=== PATIENT | male | born 1985 | race Caucasian/White ===

== ENCOUNTER 2018-10-18 13:18 | Emergency (ER) | payer SELFPAY ==
[2018-10-18] MEDS ORDERED: KETOROLAC TROMETHAMINE 60 MG/2 ML SDV IM ONE (14:37)
--- NOTE | 2018-10-18 14:46 | ER Document Report ---
HPI - HPI Time Seen by Provider: 10/18/18 14:40 Onset: Other Onset/Duration: Gradual - 2 days ago Quality of pain: Sharp, Stabbing Severity: Severe Pain Level: 5 Context: Patient is a 33-year-old male comes emergency room complaining of low back pain with radiation down the left leg. Patient states he has a history of back problems that occasionally goes out on him. He has a history of sciatica especially on the left side. He denies any loss of urine or stool. He has no recent injury or falls. He states that it just happens when he gets out of a vehicle and turns wrong. 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 He denies any loss of urine or stool. Denies any difficulty with walking. The pain is the only thing that is bothering him. Associated Symptoms: denies: Headache, Nausea, Slow to respond, Weakness Exacerbated by: Sitting, Standing, Movement, Walking Relieved by: Supine, Remaining still Similar symptoms previously: Yes - History of bulging disks in the lower back. Recently seen / treated by doctor: No - ROS ROS below otherwise negative: Yes - CONSTITUTIONAL Constitutional: DENIES: Fever - EENT EENT: DENIES: Sore Throat, Ear Pain, Nasal Drainage-Clear, Nasal Drainage- Purulent - NEURO Neurology: DENIES: Headache, Weakness, Vision blurred, Dizzinesss / Vertigo - CARDIOVASCULAR Cardiovascular: DENIES: Chest pain - RESPIRATORY Respiratory: DENIES: Trouble Breathing - GASTROINTESTINAL Gastrointestinal: DENIES: Abdominal Pain, Nausea, Patient vomiting, Diarrhea, Constipation - URINARY Urinary: DENIES: Dysuria, Urgency, Frequency - REPRODUCTIVE Reproductive: DENIES: : - MUSCULOSKELETAL Musculoskeletal: REPORTS: Extremity pain, Back Pain. DENIES: Neck Pain, Swelling Notes: Examination of patient's back shows he has some mild tenderness to palpation around the lower lumbar spine area. And into the left buttocks. With radiation down the posterior thigh. Patient has good DTRs in the lower extremities. He has good vascular examination as well. He has good strength against resistance with the lower extremities both in flexion and extension at the knees. Also in extension and flexion at the ankles and feet. He has good strength with knees on abduction and abduction. He has positive straight leg raise on the left side up to 25 degrees. - DERM Skin Color: Normal, [place] Skin Problems: None Past Medical History - General Information source: Patient - Social History Smoking Status: Never Smoker Cigarette use (# per day): No Chew tobacco use (# tins/day): No Smoking Education Provided: No Frequency of alcohol use: None Drug Abuse: None Lives with: Family Family History: None, Reviewed & Not Pertinent Psychiatric Medical History: Reports: Hx Attention Deficit Hyperactivity Disorder - Immunizations Immunizations up to date: No Hx Diphtheria, Pertussis, Tetanus Vaccination: Yes Vertical Provider Document - CONSTITUTIONAL Agree With Documented VS: Yes Exam Limitations: negative: Physical Impairment General Appearance: WD/WN, No Apparent Distress, Other - Is uncomfortable appearing. negative: Severe Distress - INFECTION CONTROL TRAVEL OUTSIDE OF THE [place] IN LAST 30 DAYS: No - HEENT HEENT: Atraumatic. negative: Conjuctival Injection, Dental Injury, Normal ENT Exam - NECK Neck: Normal Inspection - RESPIRATORY Respiratory: Breath Sounds Normal, No Respiratory Distress, Chest Non-Tender. negative: Rales, Rhonchi, Wheezing - CARDIOVASCULAR Cardiovascular: Bradycardia - GI/ABDOMEN Gastrointestinal: Abdomen Soft, Abdomen Non-Tender. negative: Abdominal Guarding, Abdominal Rebound - BACK Back: negative: Normal Inspection Notes: As stated on the HPI patient physical exam showed he has some mild tenderness palpation along the left lower lumbar spine area into the left buttocks and down the posterior left buttocks and thigh. Patient had good DTRs in lower extremities he had a positive straight leg raise on the left side of 25 degrees. Vascular examination was negative for any acute findings. He had good vascular flow to the dorsalis pedis bilateral lower extremities as well as to the femoral artery areas. - MUSCULOSKELETAL/EXTREMETIES Musculoskeletal/Extremeties: FROM, Non-Tender, No Edema. negative: Eccymosis Notes: There were no abnormalities found in patient's physical examination of his back as far as discoloration swellings, abrasions - NEURO Level of Consciousness: Awake, Alert, Appropriate Motor/Sensory: No Motor Deficit, No Sensory Deficit, No Pronator Drift, Negative Babinski's Sign. negative: Weak Motor Strength RUE, Weak Motor Strength LUE, Weak Motor Strength RLE, Weak Motor Strength LLE Deep Tendon Reflexes: 2+ - DERM Integumentary: Warm, Dry, No Rash Course - Re-evaluation Re-evalutation: 10/19/18 02:35 Patient's course was negative for any acute findings. And/or was uneventful as well. I did look patient up on the Counts include 234 beds at the [facility] drug line. He has no history or indications of doctor shopping or drug abuse. Therefore felt comfortable enough to give him some pain medications. [place] this was a presenta tion of sciatica and informed him of how this may have occurred and have given him a referral to orthopedist. Discharge - Discharge Clinical Impression: Sciatica of left side Condition: Stable Disposition: HOME, SELF-CARE Instructions: Sciatica ([facility]) Additional Instructions: LOW BACK PAIN: Three out of every four people will have an episode of disabling back pain during their lifetime. Most commonly the pain is due to straining of the muscles and ligaments in the low back. Usual treatment includes: (1) Rest on a firm surface. Avoid lying on your stomach. (2) Ice pack the painful area. After a few days, gentle heat may be used intermittently to relax the area, or ice packs can be continued. (3) Medication may be needed -- muscle relaxers and antiinflammatory medicines are commonly used. (4) As the back improves, exercises are prescribed to strengthen the back and abdominal muscles. Your doctor will advise you on the proper care for your back at each stage in your recovery. You may be better in a few days -- or healing may take several weeks. If new symptoms of a "herniated disc" (radiation of pain, numbness, or tingling down the back of the leg or weakness in the leg) occur, you should be re-examined. Further testing may be necessary. PAIN MEDICATION INJECTION: You have received an injection of a pain medication. You should experience significant pain relief within 45 minutes. If this injection was a narcotic -- it will impair your judgement, slow your reaction time and make you sleepy (as well as relieve your pain). Narcotics also can cause nausea. You should not drive, work with machinery, or perform any task requiring mental alertness until all effects of the medication are gone -- six to eight hours. Do not take any alcohol, or sedatives, and do not take any other medication without checking with your physician. ORAL NARCOTIC MEDICATION: You have been given a prescription for pain control. This medication is a narcotic. It's best taken with food, as nausea can result if taken on an empty stomach. Don't operate machinery or drive within six hours of taking this medication. Do not combine this medicine with alcohol, or with any medication which can cause sedation (such as cold tablets or sleeping pills) unless you get permission from the physician. Narcotics tend to cause constipation. If possible, drink plenty of fluids and eat a diet high in fiber and fruits. Please be aware that prescription narcotics also have the potential for abuse. People become addicted to these medications because of the general sense of wellbeing that they induce. This feeling along with a significant reduction in tension, anxiety, and aggression provides a stimulating seductive quality to these drugs. Once your pain is under control, we encourage you to discard your unused narcotics. MUSCLE RELAXERS: Muscle relaxing medications are usually prescribed for acute muscle spasm or injury to the neck and back. They are often combined with antiinflammatory pain medication for increased relief. You may stop the muscle relaxer when the pain and stiffness have improved. Start the medication again if spasms recur. Muscle relaxers may cause drowsiness, especially with the first dose. Do not operate machinery or drive while under the effects of the medication. Most muscle relaxers last up to 24 hours. Do not combine the medication with alcohol. ICE PACKS: Apply ice packs frequently against the painful area. Many different schedules are recommended, such as "20 minutes on, 20 minutes off" or "one hour ice, two hours rest." If you need to work, you may need to go longer between ice treatments. You should plan to have the area ice packed AT LEAST one fourth of the time. The ice should be applied over the wrap, tape, or splint, or over a layer of cloth -- not directly against the skin. Some ice bags have a built-in cloth and can be put directly on the skin. WARM PACKS: After approximately two days, apply gentle heat (such as a heating pad or hot water bottle) for about 20 to 30 minutes about every two hours -- at least four times daily. Warmth and elevation will help you make a more rapid recovery, and will ease the pain considerably. Do not use HOT heat, and never apply heat for longer than 30 minutes. The continuous heat can invisibly damage skin and muscles -- even when no burn is seen on the surface. Damaged muscles can make you MORE sore. FOLLOW-UP CARE: If you have been referred to a physician for follow-up care, call the physicians office for an appointment as you were instructed or within the next two days. If you experience worsening or a significant change in your symptoms, notify the physician immediately or return to the Emergency Department at any time for re-evaluation. Prescriptions: Cyclobenzaprine HCl [Flexeril 10 mg Tablet] 10 mg PO TIDP PRN #15 tab PRN Reason: Hydrocodone/Acetaminophen [[place] 5-325 mg Tablet] 1 tab PO Q6 PRN #10 tablet PRN Reason: Prednisone 10 mg PO ASDIR PRN 6 Days #1 tab.ds.pk PRN Reason: Forms: Smoking Cessation Education, Return to Work Referrals: SANA CERVANTES MD [ACTIVE STAFF] - Follow up as needed
[2018-10-18 15:02] VITALS: BP 111/62
== END 2018-10-18 15:02 | disposition home or self-care (01) ==
LOC: ER 13:18
DX: M54.32 Sciatica, left side (principal); M54.5 Low back pain; M79.605 Pain in left leg
CPT/HCPCS: 99283; 96372; J1885

== ENCOUNTER 2019-02-20 18:20 | Emergency (ER) | payer SELFPAY ==
[2019-02-20 18:32] VITALS: BP 124/70
[2019-02-20 18:46] LABS: APPEARANCE,URINE CLEAR; BILIRUBIN,URINE NEGATIVE (NEGATIVE); COLOR,URINE YELLOW; GLUCOSE, URINE NEGATIVE (NEGATIVE); KETONES,URINE NEGATIVE (NEGATIVE); LEUKOCYTE ESTERASE,URINE NEGATIVE (NEGATIVE); NITRITE,URINE NEGATIVE (NEGATIVE); PROTEIN,URINE NEGATIVE (NEGATIVE); URINE SPECIFIC GRAVITY 1.014; UROBILINOGEN,URINE NEGATIVE mg/dL (<2.0)
[2019-02-20] MEDS ORDERED: LIDOCAINE 5% (700 MG) TRANSDERMAL ADH..PATCH TP ONE (19:58)
[2019-02-20] MEDS ORDERED: DEXAMETHASONE SOD PHOS INJ 10 MG/1 ML VIAL IM ONE (19:58)
[2019-02-20] MEDS ORDERED: KETOROLAC TROMETHAMINE 60 MG/2 ML SDV IM ONE (19:58)
[2019-02-20] MEDS ORDERED: OXYCODONE-ACETAMINOPHEN 5-325 MG TABLET PO ONE (19:59)
--- NOTE | 2019-02-20 20:01 | ER Document Report ---
ED Medical Screen (RME) - General Chief Complaint: Urinary Problem Stated Complaint: BACK PAIN Time Seen by Provider: 02/20/19 19:58 Mode of Arrival: Ambulatory Information source: Patient Notes: Patient is an otherwise healthy 33-year-old male presenting to the emergency department chief complaint of low back pain. Patient reports the pain is located on the left lumbar area. He denies any bowel incontinence or urinary retention. He denies any saddle anesthesia. He does report that the pain radiates down into his buttock. He states he has had a long history of chronic back issues and musculoskeletal strain. He states lately he has been doing a lot of labor-intensive work with heavy lifting. He denies any urinary concerns, denies dysuria, urinary frequency or urgency. Patient does not have any concerns for STDs. Exam: Patient ambulates with steady gait. Tenderness to the lumbar paraspinous muscles. I have greeted and performed a rapid initial assessment of this patient. A comprehensive ED assessment and evaluation of the patient, analysis of test results and completion of the medical decision making process will be conducted by additional ED providers. Dictation of this chart was performed using voice recognition software; therefore, there may be some unintended grammatical errors. TRAVEL OUTSIDE OF THE [place] IN LAST 30 DAYS: No - Related Data Allergies/Adverse Reactions: No Known Allergies Allergy (Verified 10/18/18 13:19) Past Medical History - Social History Chew tobacco use (# tins/day): No Frequency of alcohol use: Rare Drug Abuse: None Renal/ Medical History: Denies: Hx Peritoneal Dialysis Psychiatric Medical History: Reports: Hx Attention Deficit Hyperactivity Disorder - Immunizations Immunizations up to date: No Hx Diphtheria, Pertussis, Tetanus Vaccination: Yes Physical Exam - Vital signs Vitals: Temp Pulse Resp BP Pulse Ox 98.3 F 71 14 124/70 99 02/20/19 18:30 02/20/19 18:30 02/20/19 18:30 02/20/19 18:30 02/20/19 18:30 Course - Vital Signs Vital signs: Temp Pulse Resp BP Pulse Ox 98.3 F 71 14 124/70 99 02/20/19 18:30 02/20/19 18:30 02/20/19 18:30 02/20/19 18:30 02/20/19 18:30
--- NOTE | 2019-02-20 21:11 | ER Document Report ---
ED General - General Chief Complaint: Urinary Problem Stated Complaint: BACK PAIN Time Seen by Provider: 02/20/19 19:58 Mode of Arrival: Ambulatory Information source: Patient Notes: Patient is an otherwise healthy 33-year-old male presenting to the emergency department chief complaint of low back pain. Patient reports the pain is located on the left lumbar area. He denies any bowel incontinence or urinary retention. He denies any saddle anesthesia. He does report that the pain radiates down into his buttock. He states he has had a long history of chronic back issues and musculoskeletal strain. He states lately he has been doing a lot of labor-intensive work with heavy lifting. He denies any urinary concerns, denies dysuria, urinary frequency or urgency. Patient does not have any concerns for STDs. TRAVEL OUTSIDE OF THE [place] IN LAST 30 DAYS: No - Related Data Allergies/Adverse Reactions: No Known Allergies Allergy (Verified 10/18/18 13:19) Past Medical History - General Information source: Patient - Social History Smoking Status: Current Every Day Smoker Chew tobacco use (# tins/day): No Frequency of alcohol use: Rare Drug Abuse: None Family History: None, Reviewed & Not Pertinent Patient has suicidal ideation: No Patient has homicidal ideation: No - Medical History Medical History: Negative Renal/ Medical History: Denies: Hx Peritoneal Dialysis Psychiatric Medical History: Reports: Hx Attention Deficit Hyperactivity Disorder Surgical Hx: Negative - Immunizations Immunizations up to date: No Hx Diphtheria, Pertussis, Tetanus Vaccination: Yes Review of Systems - Review of Systems Constitutional: No symptoms reported EENT: No symptoms reported Cardiovascular: No symptoms reported Respiratory: No symptoms reported Gastrointestinal: No symptoms reported Genitourinary: No symptoms reported Male Genitourinary: No symptoms reported Musculoskeletal: See HPI Skin: No symptoms reported Hematologic/Lymphatic: No symptoms reported Neurological/Psychological: No symptoms reported Physical Exam - Vital signs Vitals: Temp Pulse Resp BP Pulse Ox 98.3 F 71 14 124/70 99 02/20/19 18:30 02/20/19 18:30 02/20/19 18:30 02/20/19 18:30 02/20/19 18:30 - Notes Notes: PHYSICAL EXAMINATION: GENERAL: Well-appearing, well-nourished and in no acute distress. HEAD: Atraumatic, normocephalic. EYES: Pupils equal round and reactive to light, extraocular movements intact, sclera anicteric, conjunctiva are normal. ENT: Nares patent, oropharynx clear without exudates. Moist mucous membranes. NECK: Normal range of motion, supple without lymphadenopathy LUNGS: Breath sounds clear to auscultation bilaterally and equal. No wheezes rales or rhonchi. HEART: Regular rate and rhythm without murmurs ABDOMEN: Soft, nontender, nondistended abdomen. No guarding, no rebound. No masses appreciated. Musculoskeletal: Normal range of motion, no pitting or edema. No cyanosis. Tenderness to palpation to left paraspinous muscles in the lumbar region. No step-off or deformity or vertebral tenderness. NEUROLOGICAL: Cranial nerves grossly intact. Normal speech, normal gait. Normal sensory, motor exams PSYCH: Normal mood, normal affect. SKIN: Warm, Dry, normal turgor, no rashes or lesions noted. Course - Re-evaluation Re-evalutation: Urinalysis is unremarkable. Patient reports significant reduction in his pain after administration of medications. Patient has no red flag warning signs such as saddle anesthesia, bowel incontinence or urinary retention. Patient states he is ready to go home. Vital signs remained stable. Patient given ED return precautions. - Vital Signs Vital signs: Temp Pulse Resp BP Pulse Ox 98.3 F 71 14 124/70 99 02/20/19 18:30 02/20/19 18:30 02/20/19 18:30 02/20/19 18:30 02/20/19 18:30 Discharge - Discharge Clinical Impression: Back pain Qualifiers: Back pain location: low back pain Chronicity: acute Back pain laterality: right Sciatica presence: with sciatica Sciatica laterality: sciatica of right side Qualified Code(s): M54.41 - Lumbago with sciatica, right side Condition: Stable Disposition: HOME, SELF-CARE Additional Instructions: LOW BACK PAIN: Three out of every four people will have an episode of disabling back pain during their lifetime. Most commonly the pain is due to straining of the muscles and ligaments in the low back. Usual treatment includes: (1) Rest on a firm surface. Avoid lying on your stomach. (2) Ice pack the painful area. After a few days, gentle heat may be used intermittently to relax the area, or ice packs can be continued. (3) Medication may be needed -- muscle relaxers and antiinflammatory medicines are commonly used. (4) As the back improves, exercises are prescribed to strengthen the back and abdominal muscles. Your doctor will advise you on the proper care for your back at each stage in your recovery. You may be better in a few days -- or healing may take several weeks. If new symptoms of a "herniated disc" (radiation of pain, numbness, or tingling down the back of the leg or weakness in the leg) occur, you should be re-examined. Further testing may be necessary. PAIN MEDICATION INJECTION: You have received an injection of a pain medication. You should experience significant pain relief within 45 minutes. If this injection was a narcotic -- it will impair your judgement, slow your reaction time and make you sleepy (as well as relieve your pain). Narcotics also can cause nausea. You should not drive, work with machinery, or perform any task requiring mental alertness until all effects of the medication are gone -- six to eight hours. Do not take any alcohol, or sedatives, and do not take any other medication without checking with your physician. ORAL NARCOTIC MEDICATION: You have been given a prescription for pain control. This medication is a narcotic. It's best taken with food, as nausea can result if taken on an empty stomach. Don't operate machinery or drive within six hours of taking this medication. Do not combine this medicine with alcohol, or with any medication which can cause sedation (such as cold tablets or sleeping pills) unless you get permission from the physician. Narcotics tend to cause constipation. If possible, drink plenty of fluids and eat a diet high in fiber and fruits. Please be aware that prescription narcotics also have the potential for abuse. People become addicted to these medications because of the general sense of wellbeing that they induce. This feeling along with a significant reduction in tension, anxiety, and aggression provides a stimulating seductive quality to these drugs. Once your pain is under control, we encourage you to discard your unused narcotics. MUSCLE RELAXERS: Muscle relaxing medications are usually prescribed for acute muscle spasm or injury to the neck and back. They are often combined with antiinflammatory pain medication for increased relief. You may stop the muscle relaxer when the pain and stiffness have improved. Start the medication again if spasms recur. Muscle relaxers may cause drowsiness, especially with the first dose. Do not operate machinery or drive while under the effects of the medication. Most muscle relaxers last up to 24 hours. Do not combine the medication with alcohol. ICE PACKS: Apply ice packs frequently against the painful area. Many different schedules are recommended, such as "20 minutes on, 20 minutes off" or "one hour ice, two hours rest." If you need to work, you may need to go longer between ice treatments. You should plan to have the area ice packed AT LEAST one fourth of the time. The ice should be applied over the wrap, tape, or splint, or over a layer of cloth -- not directly against the skin. Some ice bags have a built-in cloth and can be put directly on the skin. WARM PACKS: After approximately two days, apply gentle heat (such as a heating pad or hot water bottle) for about 20 to 30 minutes about every two hours -- at least four times daily. Warmth and elevation will help you make a more rapid recovery, and will ease the pain considerably. Do not use HOT heat, and never apply heat for longer than 30 minutes. The continuous heat can invisibly damage skin and muscles -- even when no burn is seen on the surface. Damaged muscles can make you MORE sore. FOLLOW-UP CARE: If you have been referred to a physician for follow-up care, call the physicians office for an appointment as you were instructed or within the next two days. If you experience worsening or a significant change in your symptoms, notify the physician immediately or return to the Emergency Department at any time for re-evaluation. The urine test today was negative. Please rest over the next couple of days. Use the above directions as far as icing and applying warm packs. Take medications as prescribed. Please take ibuprofen 600 mg for the next several days every 6 hours [id number]. Return to the emergency department if you have a bowel movement on yourself, you are unable to urinate at all or have numbness in your pelvic region. Prescriptions: Cyclobenzaprine HCl [Flexeril 10 mg Tablet] 10 mg PO TIDP PRN #15 tab PRN Reason: Hydrocodone/Acetaminophen [[place] 5-325 Tablet] 1 each PO Q4H #12 tablet Lidocaine [Lidoderm 5% (700 mg) Transdermal Patch] 1 patch TP DAILY #30 adh..patch Forms: Return to Work
== END 2019-02-21 00:04 | disposition home or self-care (01) ==
LOC: ER 18:20
DX: M54.42 Lumbago with sciatica, left side (principal); F17.200 Nicotine dependence, unspecified, uncomplicated
CPT/HCPCS: 99283; 96372; 81001; J1885; J1100

== ENCOUNTER 2019-05-07 12:05 | Emergency (ER) | payer SELFPAY ==
[2019-05-07] MEDS ORDERED: KETOROLAC TROMETHAMINE 60 MG/2 ML SDV IM ONE (15:55)
[2019-05-07] MEDS ORDERED: CYCLOBENZAPRINE HCL 10 MG TABLET PO ONE (15:55)
[2019-05-07] MEDS ORDERED: LIDOCAINE 5% (700 MG) TRANSDERMAL ADH..PATCH TP ONE (15:55)
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
[2019-05-07 16:45] VITALS: BP 119/73
== END 2019-05-07 16:46 | disposition home or self-care (01) ==
LOC: ER 12:05
DX: G89.29 Other chronic pain (principal); M54.2 Cervicalgia; M54.42 Lumbago with sciatica, left side; M79.602 Pain in left arm; M79.18 Myalgia, other site
CPT/HCPCS: 99283; 96372; J1885

== ENCOUNTER 2019-07-30 10:11 | Emergency (ER) | payer MEDICAID ==
[2019-07-30 10:16] VITALS: BP 117/64
--- NOTE | 2019-07-30 10:52 | ER Document Report ---
HPI - HPI Time Seen by Provider: 07/30/19 10:40 Pain Level: 5 Notes: Patient is a 33-year-old male presenting to the emergency department with chief complaint of pain to his right posterior knee. Patient reports he has been diagnosed with a Mcdonald's cyst in this area. States he was supposed to see his primary care doctor to have this drained however unfortunately he missed that appointment. He reports the pressure is causing him significant pain. He denies any other illness or fever. - CONSTITUTIONAL Constitutional: DENIES: Fever, Chills - EENT EENT: DENIES: Sore Throat, Ear Pain, Eye problems - NEURO Neurology: DENIES: Headache, Weakness, Vision blurred, Dizzinesss / Vertigo - CARDIOVASCULAR Cardiovascular: DENIES: Chest pain - RESPIRATORY Respiratory: DENIES: Trouble Breathing, Coughing - GASTROINTESTINAL Gastrointestinal: DENIES: Abdominal Pain, Black / Bloody Stools - URINARY Urinary: DENIES: Dysuria, Urgency, Frequency - REPRODUCTIVE Reproductive: DENIES: : - MUSCULOSKELETAL Musculoskeletal: REPORTS: Extremity pain Past Medical History - General Information source: Patient - Social History Smoking Status: Current Every Day Smoker Chew tobacco use (# tins/day): No Frequency of alcohol use: Occasional Drug Abuse: None Family History: None, Reviewed & Not Pertinent Patient has suicidal ideation: No Patient has homicidal ideation: No Renal/ Medical History: Denies: Hx Peritoneal Dialysis Psychiatric Medical History: Reports: Hx Attention Deficit Hyperactivity Disorder Surgical Hx: Negative - Immunizations Immunizations up to date: No Hx Diphtheria, Pertussis, Tetanus Vaccination: Yes Vertical Provider Document - CONSTITUTIONAL Notes: PHYSICAL EXAMINATION: GENERAL: Well-appearing, well-nourished and in no acute distress. HEAD: Atraumatic, normocephalic. EYES: Pupils equal round extraocular movements intact, conjunctiva are normal. ENT: Nares patent NECK: Normal range of motion LUNGS: No respiratory distress Musculoskeletal: Normal range of motion NEUROLOGICAL: Normal speech, normal gait. PSYCH: Normal mood, normal affect. SKIN: Large area of fluctuance noted to right posterior knee, no surrounding erythema or induration. - INFECTION CONTROL TRAVEL OUTSIDE OF THE [place] IN LAST 30 DAYS: No Course - Re-evaluation Re-evalutation: Under sterile technique 15 cc of yellow thick fluid was drained from the patient's right posterior knee area from the large Mcdonald's cyst. Patient reports significant decrease in his pain. Patient tolerated the procedure very well. Patient will be discharged home at this time with plans to follow-up with his primary care provider. - Vital Signs Vital signs: Temp Pulse Resp BP Pulse Ox 98.2 F 64 16 117/64 99 07/30/19 10:15 07/30/19 10:15 07/30/19 10:15 07/30/19 10:15 07/30/19 10:15 Discharge - Discharge Clinical Impression: Bakers cyst Qualifiers: Laterality: right Qualified Code(s): M71.21 - Synovial cyst of popliteal space [Mcdonald], right knee Condition: Stable Disposition: HOME, SELF-CARE Additional Instructions: 15 mL of fluid was drained from your Mcdonald's cyst on the right knee. Please watch the area for any signs of infection to include redness, worsening pain or swelling. Follow-up with your primary care provider. Forms: Return to Work
== END 2019-07-30 11:04 | disposition home or self-care (01) ==
LOC: ER 10:11
DX: M71.21 Synovial cyst of popliteal space [Baker], right knee (principal); M25.561 Pain in right knee; F17.200 Nicotine dependence, unspecified, uncomplicated
CPT/HCPCS: 99283

== ENCOUNTER 2019-10-24 12:03 | Emergency (ER) | payer MEDICAID ==
--- NOTE | 2019-10-24 13:27 | ER Document Report ---
ED Medical Screen (RME) - General Chief Complaint: Abscess Stated Complaint: ABSCESS/BEHIND RIGHT KNEE Time Seen by Provider: 10/24/19 13:17 Notes: 34-year-old male who presents to the emergency department with chief complaint of a cyst/abscess on his right posterior knee. He was seen here on 07/30/2019 for the same thing. Denies fevers or chills, denies nausea or vomiting, denies IV drug use. Patient has an appointment with his primary on November 03 to address this issue. Exam: Large fluctuant area on the posterior aspect of the right knee I have greeted and performed a rapid initial assessment of this patient. A comprehensive ED assessment and evaluation of the patient, analysis of test results and completion of medical decision making process will be conducted by an additional ED providers. TRAVEL OUTSIDE OF THE [place] IN LAST 30 DAYS: No - Related Data Allergies/Adverse Reactions: No Known Allergies Allergy (Verified 10/24/19 13:14) Past Medical History - Social History Frequency of alcohol use: None Drug Abuse: None Renal/ Medical History: Denies: Hx Peritoneal Dialysis Psychiatric Medical History: Reports: Hx Attention Deficit Hyperactivity Disorder - Immunizations Immunizations up to date: No Hx Diphtheria, Pertussis, Tetanus Vaccination: Yes Physical Exam - Vital signs Vitals: Temp Pulse Resp BP Pulse Ox 97.7 F 54 L 16 108/61 100 10/24/19 12:19 10/24/19 12:19 10/24/19 12:10/24/19 12:10/24/19 12:19 Course - Vital Signs Vital signs: Temp Pulse Resp BP Pulse Ox 97.7 F 54 L 16 108/61 100 10/24/19 12:19 10/24/19 12:19 10/24/19 12:10/24/19 12:19 10/24/19 12:19
[2019-10-24] MEDS ORDERED: HYDROCODONE/ACETAMINOPHEN 5-325 MG TABLET PO ONE (14:17)
--- NOTE | 2019-10-24 14:24 | ER Document Report ---
ED General - General Chief Complaint: Abscess Stated Complaint: ABSCESS/BEHIND RIGHT KNEE Time Seen by Provider: 10/24/19 13:17 Primary Care Provider: IMTIAZ LANCE JR, DO [ACTIVE PROVISIONAL STAFF] - Follow up in 3-5 days RAQUEL VERNON DO [Primary Care Provider] - Follow up in 3-5 days Notes: 34-year-old male presents with swelling behind right knee for a month and a half. Patient denies any fever. Patient states it hurts. Patient denies any IV drug use. Patient states similar episode back in July. Patient has follow-up with PCP on November 03 for same. TRAVEL OUTSIDE OF THE [place] IN LAST 30 DAYS: No - Related Data Allergies/Adverse Reactions: No Known Allergies Allergy (Verified 10/24/19 13:14) Past Medical History - Social History Smoking Status: Never Smoker Frequency of alcohol use: None Drug Abuse: None Family History: None, Reviewed & Not Pertinent Patient has suicidal ideation: No Patient has homicidal ideation: No Renal/ Medical History: Denies: Hx Peritoneal Dialysis Psychiatric Medical History: Reports: Hx Attention Deficit Hyperactivity Disorder - Immunizations Immunizations up to date: No Hx Diphtheria, Pertussis, Tetanus Vaccination: Yes Review of Systems - Review of Systems Notes: Constitutional: Negative for fever. HENT: Negative for sore throat. Eyes: Negative for visual changes. Cardiovascular: Negative for chest pain. Respiratory: Negative for shortness of breath. Gastrointestinal: Negative for abdominal pain, vomiting or diarrhea. Genitourinary: Negative for dysuria. Musculoskeletal: Negative for back pain. Skin: Positive for swelling behind right knee. Negative for rash. Neurological: Negative for headaches, weakness or numbness. 10 point ROS negative except as marked above and in HPI. Physical Exam - Vital signs Vitals: Temp Pulse Resp BP Pulse Ox 97.7 F 54 L 16 108/61 100 10/24/19 12:19 10/24/19 12:19 10/24/19 12:19 10/24/19 12:19 10/24/19 12:19 - Notes Notes: GENERAL: Well-appearing, well-nourished and in no acute distress. HEAD: Atraumatic, normocephalic. EYES: Extraocular movements intact, sclera anicteric, conjunctiva are normal. NECK: Normal range of motion, supple without lymphadenopathy or JVD. EXTREMITIES: Normal range of motion, no pitting or edema. No clubbing or cyanosis. Right knee: Swelling consistent with Mcdonald's cyst, no erythema, not hot to touch. NEUROLOGICAL: Cranial nerves II through XII grossly intact. Normal speech, normal gait. PSYCH: Normal mood, normal affect. SKIN: Warm, Dry, normal turgor, no rashes or lesions noted. Course - Re-evaluation Re-evalutation: 10/24/19 Exam consistent with Mcdonald's cyst. No erythema or warmth to touch to suggest infection. Pt is afebrile. Nontoxic, well appearing. D-dimer ordered to rule out popliteal clot. D-dimer is negative. Patient given close follow-up with Ortho. Patient also given ibuprofen and Percocet for pain control. Discussed all results with patient. Return precautions given. Patient voices understanding and agrees with plan of care. - Vital Signs Vital signs: Temp Pulse Resp BP Pulse Ox 98.0 F 60 16 110/60 100 10/24/19 16:19 10/24/19 16:19 10/24/19 16:19 10/24/19 16:19 10/24/19 16:19 Discharge - Discharge Clinical Impression: Popliteal cyst Qualifiers: Laterality: right Qualified Code(s): M71.21 - Synovial cyst of popliteal space [Mcdonald], right knee Condition: Stable Disposition: HOME, SELF-CARE Instructions: Mcdonald's Cyst ([facility]) Additional Instructions: Please take pain medications as prescribed. Do not drink or drive while taking as they may make you drowsy. Please follow-up with Ortho listed in 3 to 5 days. Return to ER for any worsening symptoms, including worsening pain, fever, redness to area, shortness of breath, chest pain, nausea/vomiting any other symptoms that are concerning to you. Prescriptions: Ibuprofen [Motrin 800 mg Tablet] 800 mg PO Q8H PRN #30 tab PRN Reason: Oxycodone HCl/Acetaminophen [Percocet 5-325 mg Tablet] 1 - 2 tab PO Q4H PRN #15 tablet PRN Reason: Forms: Return to Work Referrals: RAQUEL VERNON DO [Primary Care Provider] - Follow up in 3-5 days IMTIAZ LANCE JR, DO [ACTIVE PROVISIONAL STAFF] - Follow up in 3-5 days
[2019-10-24] MEDS ORDERED: HYDROCODONE/ACETAMINOPHEN 5-325 MG (6 TAB/ER DISP) PO PRN (16:01)
[2019-10-24 16:20] VITALS: BP 110/60
== END 2019-10-24 16:21 | disposition home or self-care (01) ==
LOC: ER 12:03
DX: M71.21 Synovial cyst of popliteal space [Baker], right knee (principal)
CPT/HCPCS: 36415; 85379; 99283

== ENCOUNTER 2020-07-07 00:53 | Emergency (ER) | payer MEDICAID ==
[2020-07-07 01:20] VITALS: BP 120/74
[2020-07-07] MEDS ORDERED: PREDNISONE 20 MG TABLET PO ONE (01:29)
[2020-07-07] MEDS ORDERED: KETOROLAC TROMETHAMINE 60 MG/2 ML SDV IM ONE (01:29)
--- NOTE | 2020-07-07 01:34 | ER Document Report ---
HPI - HPI Time Seen by Provider: 07/07/20 01:29 Pain Level: 5 Notes: CHIEF COMPLAINT: Sciatic pain HPI: 34-year-old male presenting with left sciatic pain over the last 6 days. States he has had similar issues in the past and been diagnosed with sciatica states this feels similar. No incontinence of urine or bowel but during our discussion patient reports over the last 1 to 2 years he has noticed some hesitancy when trying to urinate. Patient states he gives urinary drug screen every 2 weeks but has noticed the hesitancy and difficulty starting his stream. No rectal pain no difficulty with bowel movements denies penile or testicular pain. ROS: See HPI - all other systems were reviewed and are otherwise negative Constitutional: no fever Eyes: no drainage, no blurred vision ENT: no runny nose, no sore throat Cardiovascular: no chest pain Resp: no SOB, no cough GI: no vomiting, no diarrhea, no abdominal pain : no dysuria Integumentary: no rash Allergy: no hives Musculoskeletal: Positive back pain Neurological: no numbness/tingling, no weakness MEDICATIONS: I agree with the patient medications as charted by the RN. ALLERGIES: I agree with the allergies as charted by the RN. PAST MEDICAL HISTORY/PAST SURGICAL HISTORY: Reviewed and agree as charted by RN. SOCIAL HISTORY: Reviewed and agree as charted by RN. FAMILY HISTORY: No significant familial comorbid conditions directly related to patient complaint EXAM: Reviewed vital signs as charted by RN. CONSTITUTIONAL: Alert and oriented and responds appropriately to questions. Well-appearing; well-nourished HEAD: Normocephalic; atraumatic EYES: Conjunctivae clear, sclerae non-icteric ENT: normal nose; no rhinorrhea; moist mucous membranes NECK: Supple without meningismus; non-tender; no cervical lymphadenopathy, no masses CARD: symmetric distal pulses RESP: Normal chest excursion without splinting or tachypnea ABD/GI: Normal bowel sounds; non-distended; soft, non-tender, no rebound, no guarding; no palpable organomegaly or masses. BACK: The back appears normal and is minimally tender to palpation in the left lower lumbar back with radiation into the gluteal region, there is no CVA tenderness EXT: Normal ROM in all joints; non-tender to palpation; no cyanosis, no effusi ons, no edema SKIN: Normal color for age and race; warm; dry; good turgor; no acute lesions noted NEURO: Moves all extremities equally; Motor and sensory function intact. Strength equal 5/5 bilateral lower extremities. Sensation intact and equal bilateral lower extremities. Straight leg raise is negative. No saddle anesthesia on exam. DTRs 2+ intact and equal bilateral lower extremities. PSYCH: The patient's mood and manner are appropriate. Grooming and personal hygiene are appropriate. MDM: 34-year-old male presenting with symptoms consistent with left sciatica. Will treat with Toradol which he states has worked well for him in the past and steroids. Patient is on Suboxone for prior drug addiction history. Patient had reported some hesitancy in his urinary stream and being able to start urinating that has been ongoing over 1 to 2 years. Has never mentioned it to his PCP. He has Medicaid which may require his PCP for referral to urology but I will give him a referral to urology. He does not believe that he has a urinary infection stating he has had these before and he has no symptoms similar to this no discomfort and no fevers. He declines further work-up at this time but will take the referral - CONSTITUTIONAL Constitutional: DENIES: Fever, Chills - EENT EENT: DENIES: Sore Throat, Ear Pain, Eye problems - NEURO Neurology: DENIES: Headache, Weakness, Vision blurred, Dizzinesss / Vertigo - CARDIOVASCULAR Cardiovascular: DENIES: Chest pain - RESPIRATORY Respiratory: DENIES: Trouble Breathing, Coughing - GASTROINTESTINAL Gastrointestinal: DENIES: Abdominal Pain, Black / Bloody Stools - URINARY Urinary: DENIES: Dysuria, Urgency, Frequency - REPRODUCTIVE Reproductive: DENIES: : - MUSCULOSKELETAL Musculoskeletal: REPORTS: Extremity pain Past Medical History - Social History Smoking Status: Current Every Day Smoker Chew tobacco use (# tins/day): No Frequency of alcohol use: None Drug Abuse: None Family History: None, Reviewed & Not Pertinent Patient has homicidal ideation: No Renal/ Medical History: Denies: Hx Peritoneal Dialysis Psychiatric Medical History: Reports: Hx Attention Deficit Hyperactivity Disorder - Immunizations Immunizations up to date: No Hx Diphtheria, Pertussis, Tetanus Vaccination: Yes Vertical Provider Document - INFECTION CONTROL TRAVEL OUTSIDE OF THE [place] IN LAST 30 DAYS: No Course - Vital Signs Vital signs: Temp Pulse Resp BP Pulse Ox 98.7 F 95 16 120/74 96 07/07/20 01:21 07/07/20 01:19 07/07/20 01:19 07/07/20 01:19 07/07/20 01:19 Discharge - Discharge Clinical Impression: Urinary hesitancy Sciatica Qualifiers: Laterality: left Qualified Code(s): M54.32 - Sciatica, left side Condition: Stable Disposition: HOME, SELF-CARE Additional Instructions: Take the medications to treat the sciatic issue. Follow-up with urology for further evaluation of the urinary hesitancy you may require a referral from your primary care provider as discussed Prescriptions: Prednisone [Deltasone 20 mg Tablet] 2 tab PO DAILY 5 Days #10 tablet Diclofenac Sodium [Voltaren 50 Mg Tablet.] 50 mg PO BID #20 tablet. Referrals: RAQUEL VERNON DO [Primary Care Provider] - Follow up as needed ROSIE SHARP MD [NO LOCAL MD] - Follow up as needed
== END 2020-07-07 01:47 | disposition home or self-care (01) ==
LOC: ER 00:53
DX: M54.32 Sciatica, left side (principal); R39.11 Hesitancy of micturition; F17.200 Nicotine dependence, unspecified, uncomplicated; F19.20 Other psychoactive substance dependence, uncomplicated; Z79.899 Other long term (current) drug therapy; Z87.440 Personal history of urinary (tract) infections
CPT/HCPCS: 99284; 96372; J1885; J7512